=== PATIENT | male | born 2000 | race Caucasian/White ===

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

== ENCOUNTER 2023-09-03 10:37 | Emergency (ER) | payer BC, SELFPAY ==
[2023-09-03 10:50] VITALS: BP 112/58; PULSE 75; RESP 16; TEMP 37.1; O2SAT 98
--- NOTE | 2023-09-03 10:55 | ED.URI ---
HPI - URI/Sore Throat General Chief Complaint: Upper Respiratory Infection Stated Complaint: fever,headache Time Seen by Provider: 09/03/23 10:43 Source: patient Mode of arrival: ambulatory Limitations: no limitations History of Present Illness HPI Narrative: Betzaida is a 23-year-old male patient presenting to clinic today with complaints of fever, cough, and headache is been off and on x3 weeks. Highest temperature is been 103 which was last night. Reports when he cough he is bringing up some green phlegm. He reports that his mother is a nurse practitioner and she gave him antibiotics approximately 1 week ago and he is still having symptoms. Does not recall what antibiotics he was put on at that time. He denies a sore throat currently. Denies any chest pain or shortness of breath. Related Data Allergies Allergy/AdvReac Type Severity Reaction Status Date / Time NKDA Allergy Mild Unknown Uncoded 09/03/23 10:56 Review of Systems Review of Systems: Pertinent positives per HPI. Patient denies any rash, visual changes, dizziness, cough, runny nose, sore throat, shortness of breath, chest pain, palpitations, nausea, vomiting, diarrhea, constipation, abdominal pain, or any urinary issues. PMFSH Comments At the time of my signature, I reviewed and agree with the nursing past medical, surgical, social, and family history. There is no relevant family history pertinent to the patient complaint. Exam Narrative: General: Well-developed, well nourished, in no apparent distress Head: Normocephalic, atraumatic Eyes: Pupils equally round and reactive to light bilaterally, EOM intact, sclera and conjunctive clear, no discharge, lids normal Ears: TMs intact and clear, ear canals clear, no drainage, grossly hearing normal. Nose: Nares patent, clear nasal discharge, moderate inflammation to right nare, severe inflammation to the left nare, maxillary sinus tenderness. Mouth: Oropharynx red with bilateral tonsillar enlargement with white exudate to bilateral tonsils without lesions or masses, good dentition, MMM. Neck: Supple, trachea midline, no enlargement of anterior or posterior cervical nodes, no thyroid masses or goiter palpable. Cardio: Regular rate and rhythm, s1 and s2 normal, no murmur appreciated. Resp: Clear to auscultation bilaterally anteriorly and posteriorly, no rhonchi, rales, wheezing or rubs Course Course Emergency Course: Portions of this record may have been created with voice recognition software. Level of Care: Express Care Visit Vital Signs Vital signs: Vital Signs Temperature 37.1 C 09/03/23 10:50 Pulse Rate 75 09/03/23 10:50 Respiratory Rate 16 09/03/23 10:50 Blood Pressure 112/58 L 09/03/23 10:50 Pulse Oximetry 98 09/03/23 10:50 Oxygen Delivery Room Air 09/03/23 10:50 Temperature 37.1 C 09/03/23 10:50 Pulse Rate 75 09/03/23 10:50 Respiratory Rate 16 09/03/23 10:50 Blood Pressure 112/58 L 09/03/23 10:50 Pulse Oximetry 98 09/03/23 10:50 Oxygen Delivery Room Air 09/03/23 10:50 Vital signs reviewed MDM - URI/Sore Throat MDM Narrative Medical decision making narrative: At the time of visit patient is resting comfortably on the exam table. Strep screen was obtained and was negative in the clinic today. Stanislaus testing was also negative in the clinic today. I will treat patient with Augmentin for a sinus infection. Supportive measures were discussed with the patient he voiced understanding discharge instructions agrees to treatment plan. Differential Diagnosis Differential diagnosis: Likely upper respiratory infection, otitis media, sinusitis, viral infection, bronchitis, influenza, pharyngitis and other (COVID) Lab Data Labs: Strep Screen Presumptive Negative *(Reference Range: Negative)* Stanislaus Screen Negative (Reference Range: Negative)
--- NOTE | 2023-09-03 11:27 | PC.NURSE ---
fnp stated no strep cx to be sent. will treat regardless of results.
== END 2023-09-03 11:50 | disposition home or self-care (01) ==
PROVIDERS: Emergency Provider Nurse Practitioner Family
DX: J01.90 Acute sinusitis, unspecified (principal); B96.89 Other specified bacterial agents as the cause of diseases classified elsewhere
CPT/HCPCS: 36416; 86308; 87880; 99213; G0463

== ENCOUNTER 2024-04-10 12:11 | Outpatient (CLI) | payer BC, SELFPAY ==
--- NOTE | ~2024-04-10 | XR_ITS ---
Right Shoulder Technique: AP and scapular Y views were obtained. Clinical History: Pain Findings: No fracture or dislocation is seen. Osseous alignment is anatomic. The glenohumeral and acr omioclavicular joint spaces are preserved. Soft tissues are unremarkable. Impression: Unremarkable right shoulder radiographs. Reviewed, dictated and finalized at [facility]. Impression: Unremarkable right shoulder radiographs.
== END 2024-04-10 12:12 | disposition home or self-care (01) ==
LOC: ANHBWCIMG 12:12
PROVIDERS: PCP Nurse Practitioner Adult Health; Visit Provider Nurse Practitioner Adult Health
DX: M25.511 Pain in right shoulder (principal)
CPT/HCPCS: 73030

== ENCOUNTER 2024-09-21 19:36 | Emergency (ER) | payer BC, SELFPAY ==
--- NOTE | 2024-09-21 19:45 | ED.URI ---
HPI - URI/Sore Throat General Chief Complaint: Upper Respiratory Infection Stated Complaint: Fever/Bodyaches Time Seen by Provider: 09/21/24 19:45 Source: patient, RN notes reviewed and old records reviewed Mode of arrival: ambulatory Limitations: no limitations History of Present Illness HPI Narrative: Patient being presumptively treated for pneumonia with azithromycin, has taken 2 doses of same, never picked up his Medrol Dosepak, has not taken ibuprofen since this morning, presents with complaints of cough, fever, body aches. Says he is not feeling worse, but is not feeling any better. He is in no distress, including respiratory distress. Voices no other concerns or complaints at this time Related Data Allergies Allergy/AdvReac Type Severity Reaction Status Date / Time NKDA Allergy Mild Unknown Uncoded 09/21/24 19:38 Review of Systems Review of Systems: All systems reviewed & are unremarkable except as noted in HPI and below Constitutional: Constitutional: Reports as per HPI, Reports no additional constitutional complaints, Reports body ache(s), Reports chills and Reports lethargy ENT: Reports system reviewed and no additional complaints, except as documented Cardiovascular: Cardiovascular: Reports no additional cardiovascular complaints Respiratory: Respiratory: Reports no additional respiratory complaints and Reports cough Gastrointestinal: Gastrointestinal: Reports no additional gastrointestinal complaints [facility] Social History Social History Smoking status: Never smoker Comments At the time of my signature, I reviewed and agree with the nursing past medical, surgical, social, and family history. There is no relevant family history pertinent to the patient complaint. Exam Const: General: cooperative, no acute distress, alert, awake and uncomfortable Orientation/consciousness: oriented to person, oriented to place and oriented to time HENMT: Head: normal to inspection Ears: TM's normal bilaterally Mouth: Yes moist mucous membranes Resp: Effort & Inspection: normal respiratory effort and able to speak in complete sentences Auscultation: clear to auscultation bilaterally, no crackles, no rales, no rhonchi and no wheezes Cardio: Palpation: normal PMI Rate: regular rate Rhythm: regular rhythm Heart sounds: S1 normal heart sound present and S2 normal heart sound present Neuro: General: oriented to person, oriented to place and oriented to time Cranial nerves: Yes CN's II-XII intact bilaterally Psych: Appearance: grossly normal Thought process: Normal thought process present Insight: Good insight present (Psych) Judgement: Good judgement present (Psych) Course Course Level of Care: Express Care Visit Vital Signs Vital signs: Vital Signs Temperature 101.1 F H 09/21/24 19:55 Pulse Rate 96 09/21/24 19:55 Respiratory Rate 20 09/21/24 19:55 Blood Pressure 142/99 H 09/21/24 19:55 Pulse Oximetry 99 09/21/24 19:55 Oxygen Delivery Room Air 09/21/24 19:55 Temperature 101.1 F H 09/21/24 19:55 Pulse Rate 96 09/21/24 19:55 Respiratory Rate 20 09/21/24 19:55 Blood Pressure 142/99 H 09/21/24 19:55 Pulse Oximetry 99 09/21/24 19:55 Oxygen Delivery Room Air 09/21/24 19:55 Reviewed MDM - URI/Sore Throat MDM Narrative Medical decision making narrative: patient is no acute distress, already on appropriate antibiotic therapy. He is advised to take ibuprofen as needed for symptoms, start prednisone burst. Follow-up with primary care provider. Emergency department for new or worse symptoms. Discharge instructions reviewed with patient, as well as provided in writing per nursing staff. The instructions also include specific and strict return/GO TO THE ER as well as f/u information. All questions have been answered, and the patient deny any further questions with discharge and discharge plan. Some parts of this dictation were generated by voice recognition software and may contain typographical and/or grammatical inaccuracies. Differential Diagnosis Differential diagnosis: Likely upper respiratory infection, otitis media, sinusitis, viral infection and bronchitis Medical Records Attestation: I reviewed the patient's medical records. Discharge Plan Discharge Clinical Impression: Pneumonia Patient Disposition: Home, Self-Care Condition: Stable Instructions: Antibiotic Form, Community Acquired Pneumonia (ED) Additional Instructions: Take medications as prescribed. Follow with primary care provider. Emergency department for new or worse symptoms Patient Language: [place] Prescriptions: New prednisone 50 mg tablet 50 mg PO DAILY Qty: 5 0RF albuterol sulfate [Ventolin HFA] 90 mcg/actuation HFA aerosol inhaler 2 puff inhalation QID PRN (Reason: shortness of breath or wheezing) Qty: 8.5 0RF ibuprofen 600 mg tablet 600 mg PO TID PRN (Reason: fever or pain) Qty: 30 0RF No Action azithromycin 250 mg tablet See Rx Instructions PO .COMPLEX Qty: 6 0RF Rx Instructions: For 250 mg dose pack: take 500 mg today (day 1), then 250 mg for 4 days (days 2-5) PO Follow-up/Referrals: Nae Galvan APRN [Primary Care Provider] - 2 Weeks Stand Alone Forms: Work/School Release IP Time of Disposition: 19:57
[2024-09-21 19:55] VITALS: BP 142/99; PULSE 96; RESP 20; TEMP 38.4; O2SAT 99
== END 2024-09-21 20:00 | disposition home or self-care (01) ==
PROVIDERS: Emergency Provider Nurse Practitioner Family; PCP Nurse Practitioner Adult Health
DX: J18.9 Pneumonia, unspecified organism (principal)
CPT/HCPCS: 99213; G0463

== ENCOUNTER 2025-04-15 13:18 | Emergency (ER) | payer BC, SELFPAY ==
--- NOTE | 2025-04-15 13:25 | ED_ITS ---
HPI - Fever General Chief Complaint: Nausea/Vomiting/Diarrhea Stated Complaint: Vomiting Blood/Fever/Unable to Eat Source: patient Mode of arrival: ambulatory Limitations: no limitations History of Present Illness HPI Narrative: Patient is a 25 year old male who presents to the clinic for complaints of nausea, vomiting blood, diarrhea, fever up to 104F and LLQ pain x 4 days. Currently rating his abdominal pain a 7/10. He states that he is staying hydrated with Gatorade and water, but has not been able to eat for 4 days. He states that he has been vomiting dark red blood twice a day and having diarrhea ten times a day for four days. He has been taking Tylenol over the counter with minimal relief. Denies any shortness of breath, dizziness, or being lightheaded. Related Data Allergies Allergy/AdvReac Type Severity Reaction Status Date / Time No Known Allergies Allergy Verified 04/15/25 16:23 Review of Systems Review of Systems: CONSTITUTIONAL: Denies body aches, chills, or sweats. Reports fever. EYES: Denies visual changes, redness, or discharge. ENT: Denies rhinorrhea, congestion, sore throat, or otalgia. CARDIOVASCULAR: Denies chest pain, palpitations, or edema. RESPIRATORY: Denies cough or dyspnea. GASTROINTESTINAL: Reports abdominal pain, nausea, vomiting, and diarrhea. Denies CVA Tenderness. GENITOURINARY: Denies dysuria or hematuria. SKIN: Denies rash, itching, or wounds. MUSCULOSKELETAL: Denies back pain, joint pain, or myalgia. NEUROLOGIC: Denies headache, numbness, tingling, or weakness. PSYCH: Denies depression or anxiety. All systems reviewed & are unremarkable except as noted in HPI and below PMFSH Social History Social History Smoking status: Never smoker Comments At time of signature, I have reviewed and agree with nursing past medical, surgical, social and family history unless otherwise noted. Please see nursing chart for further information. There is no relevant family history pertinent to the presenting complaint. Exam Narrative: GENERAL: Mildly ill-appearing. HEAD: Normocephalic, atraumatic. ENT: Mucous membranes moist. NECK: Supple. No lymphadenopathy. CHEST: Speaks in full sentences. No respiratory distress. HEART: Regular rate and rhythm. ABDOMEN: Soft, flat, nondistended. No guarding, rebound tenderness, or rigid. No pulsatile masses. Bowel sounds x4. No periumbilical tenderness. No Supra pubic tenderness or distension. Good femoral pulses bilaterally. No hernia noted. No scars or surface trauma. No abdominal tenderness with palpation. SKIN: Warm, dry, no rash. NEURO: Alert and oriented x3. PSYCH: Normal mood and affect. Course Course Level of Care: Express Care Visit Vital Signs Vital signs: Vital Signs Temperature 98.7 F 04/15/25 13:27 Pulse Rate 77 04/15/25 13:27 Respiratory Rate 20 04/15/25 13:27 Blood Pressure 107/62 04/15/25 13:27 Pulse Oximetry 99 04/15/25 13:27 Oxygen Delivery Room Air 04/15/25 13:27 Temperature 98.7 F 04/15/25 13:27 Pulse Rate 77 04/15/25 13:27 Respiratory Rate 20 04/15/25 13:27 Blood Pressure 107/62 04/15/25 13:27 Pulse Oximetry 99 04/15/25 13:27 Oxygen Delivery Room Air 04/15/25 13:27 reviewed. Transfer Transfered to: [facility] Transfer rationale: LLQ pain, vomiting blood, diarrhea, fever of 104F. Accepting physician: Dr. Nichols. Transfer comments: Pt is agreeable to transfer. Requests transfer to [facility] via private vehicle. Risks of transportation reviewed with pt including injury, worsening of condition and . Pt will be driving: Report called to [facility], spoke with Dr. Nichols, accepting physician. Pt is in stable condition at time of transfer. Advised to remain NPO and go directly to the hospital. MDM - Fever MDM Narrative Medical decision making narrative: Discussed physical exam findings. Based on patients symptoms of fever, hematemesis, and abdominal pain discussed with patient the need for him to transfer to ED. Pt agreeable to plan. Differential Diagnosis Differential diagnosis: Likely fever of unknown origin, gastroenteritis and other ( diverticulitis, hernia, appendicitis, bowel obstruction, IBS, colon cancer, AAA, kidney stone, uti, pyelonephritis,) Critical Care Time Critical Care Time Critical Care Time: No Discharge Plan Discharge Clinical Impression: Abdominal pain, acute, left lower quadrant Bloody emesis Qualifiers: Nausea presence: with nausea Qualified Code(s): K92.0 - Hematemesis Diarrhea Qualifiers: Diarrhea type: unspecified type Qualified Code(s): R19.7 - Diarrhea, unspecified Fever Qualifiers: Fever type: unspecified Qualified Code(s): R50.9 - Fever, unspecified Patient Disposition: Acute Care Hospital Condition: Stable Patient Language: Burkinan Prescriptions: No Action ondansetron 4 mg tablet,disintegrating 4 mg PO Q8H PRN (Reason: nausea and vomiting) Qty: 14 0RF Follow-up/Referrals: Nae Galvan APRN [Primary Care Provider] -
[2025-04-15 13:27] VITALS: BP 107/62; PULSE 77; RESP 20; TEMP 37.1; O2SAT 99
== END 2025-04-15 13:57 | disposition short-term general hospital (02) ==
LOC: EXPCOLL 13:22
PROVIDERS: PCP Nurse Practitioner Adult Health
DX: R10.32 Left lower quadrant pain (principal); K92.0 Hematemesis; R19.7 Diarrhea, unspecified; R50.9 Fever, unspecified
CPT/HCPCS: 99212; G0463

== ENCOUNTER 2025-04-15 14:13 | Emergency (ER) | payer BC, SELFPAY ==
[2025-04-15 14:16] VITALS: BP 109/71; PULSE 72; RESP 18; TEMP 36.6; O2SAT 100
[2025-04-15 14:38] VITALS: BP 120/74; PULSE 70; RESP 18; O2SAT 97
[2025-04-15 14:54] LABS: Basophils Percent Auto 0.5 % (0.2-1.2); Eosinophils Percent Auto 0.2 % (0-4.4); Hematocrit 43.3 % (42.0-52.0); Hemoglobin 14.7 g/dL (14.0-18.0); Immature Granulocyte Absolute 0.02 K/mm3 (0.00-0.031); Immature Granulocyte Percent A 0.3 % (0-0.5); Lymphocytes Percent Auto 20.7 % (18.3-44.2); Mean Corpuscular HGB Conc 33.9 g/dl (32-36); Mean Corpuscular Hemoglobin 28.8 pg (26-34); Mean Corpuscular Volume 84.7 fl (80-100); Mean Platelet Volume 9.7 fl (7.4-10.4); Monocytes Percent Auto 16.3 % (2.6-8.5); Neutrophils Absolute Auto 3.9 K/mm3 (1.3-6.7); Platelet Count Result 243 k/mm3 (150-375); Red Blood Count 5.11 M/mm3 (4.6-6.20); Red Cell Distribution Width 12.6 % (11.5-14.5); White Blood Count 6.3 K/mm3 (4.5-10.0)
[2025-04-15 15:09] LABS: Alanine Aminotransferase 34 U/L (6-50); Albumin Level 4.3 g/dL (3.5-5.1); Alkaline Phosphatase 60 U/L (38-126); Anion Gap 10 mmol/L (4-12); Aspartate Amino Transferase 37 U/L (17-59); Bilirubin,Total 0.5 mg/dL (0.2-1.3); Blood Urea Nitrogen 8 mg/dL (9-20); Calcium 9.2 mg/dL (8.4-10.2); Carbon Dioxide 28 mmol/L (22-30); Chloride 101 mmol/L (98-107); Estimated CRCL calculation 113 ml/min; Estimated Glomerular Filt Rate > 60; Glucose 91 mg/dL (65-110); Lipase 56 U/L (23-300); Potassium 3.7 mmol/L (3.4-5.0); Sodium 139 mmol/L (137-145); Total Protein 7.6 g/dL (6.3-8.2)
[2025-04-15 15:16] LABS: Add Urine Microscopic? YES; Appearance Urine Clear (Clear); Bacteria Urine None Seen /hpf; Bilirubin Urine Negative (Negative); Blood Urine Negative (Negative); Color Urine Dark Yellow (Yellow); Glucose Urine UA Negative (Negative); Ketones Urine Trace mg/dL (Negative); Leukocyte Esterase Ur Negative LEU/UL (Negative); Need Manual Microscopic Reviewed; Nitrate Urine Negative (Negative); Non Pathogenic Casts 0-2; Protein Urine 1+ mg/dL (Negative); RBC Urine 0-2 /hpf (0-2); Specific Grav Ur 1.023 (1.001-1.035); Squamous Epithelial Cell Urine None Seen /hpf (Few); WBC Urine 0-5 /hpf (0-3)
--- OUTSIDE RECORDS SUMMARY | 2025-04-15 15:19 | XMS_ITS | Encounter Summary ---
Author Organization [facility] Address [address] [place] [address] Care Team Providers Care Claim Taker Name Role Phone Randee Ch MD Primary Care Provider [phone] Dusty Dave DO Primary Care Provider Dianne Salamanca Unavailable [phone] Dusty Dave DO Unavailable [phone] Encounter Details Date Type Department Care Team (Late st Contact Info) Description 09/20/[address] [address] Mariajose Fernández MD [address] [place] [id number] Social History Tobacco Use Types Packs/Day Years Used Date Smoking Tobacco: Never Sex and Gender Information Value Date Recorded Sex Assigned at Not on file Legal Sex Male 6:43 AM [employer] Gender Identity Not on file Sexual Orientation Not on file documented as of this encounter Functional Status * Is person deaf or have serious hearing difficulty? Answer Date of Assessment Author No 09/02/2014 10:12 PM Jaquan Boggs RN * Is person blind or have serious difficulty seeing? Answer Date of Assessment Author No 09/02/2014 10:12 PM Jaquan Boggs RN * Does person have serious difficulty walking/climbing stairs? Answer Date of Assessment Author No 09/02/2014 10:12 PM Jaquan Boggs RN * Does person have difficulty dressing/bathing? Answer Date of Assessment Author No 09/02/2014 10:12 PM Jaquan Boggs RN * Does person have difficulty doing errands alone? Answer Date of Assessment Author No 09/02/2014 10:12 PM Jaquan Boggs RN documented as of this encounter Mental Status * Does person have difficulty concentrating/remembering/making decisions? Answer Entry Date Author No 09/02/2014 10:12 PM Jaquan Boggs RN documented in this encounter Plan of Treatment Not on file documented as of this encounter Goals Goal Patient Goal Type Associated Problems Recent Progress Patient-Stated? Author Use safety retraint in car Lifestyle On track( 019 3:50 PM CDT) Amelia Flores RN documented as of this encounter Visit Diagnoses Not on filedocumented in this encounter Additional Health Concerns Infection Onset Date Last Indicated Resolved Time COVID-19 Under Investigation 06/12/2020 06/12/2020 06/14/2020 1:07 PM CDT COVID-19 Under Investigation 08/14/2021 08/14/2021 08/24/2021 4:33 AM CDT documented as of this encounter Care Teams Claim Taker Relationship Specialty Start Date End Date Randee Ch MD PCP - General Pediatrics 12/24/13 02/14/18 Dusty Dave DO PCP - General Pediatrics 02/15/18 Dusty Dave DO [address] [id number] PCP - Attributed-[employer] 07/31/22 11/17/22 Dianne Salamanca [address] [address] 06/18/19 documented as of this encounter
--- OUTSIDE RECORDS SUMMARY | 2025-04-15 15:19 | XMS_ITS | Clinical Summary ---
Author Organization [facility] Address [address] [facility] [place] [address] Care Team Providers Care Cable Cutter And Swager Name Role Phone Dusty Dave DO Primary Care Provider Dianne Salamanca Unavailable [phone] Source Comments [facility],non-owned Affiliates and Associated Physician Practices is amultiple site organization consisting of ambulatory clinics and hospital sitesin [place], [place], [place] and [place]. This disclosure is being madepursuant to the Care Everywhere program and may not contain all information available regarding this patient. Last updated 18.[facility] Allergies Active Allergy Reactions Criticality Noted Date Comments Lamotrigine 09/02/2014 Oxcarbazepine Rash Medium 11/15/2016 Medications * Be aware that medications may not be up to date on this document. Alwaysverify current medications with the patient. divalproex DR (DEPAKOTE) 250 MG tablet Take 250 mg by mouth once daily Active Active Problems Problem Noted Date Diagnosed Date Closed nondisplaced fracture of neck of second metacarpal bone of right hand 05/07/2019 Closed fracture of left distal radius 02/09/2019 Closed avulsion fracture of anterior inferior iliac spine of pelvis 02/17/2018 Depression 03/26/2016 Decreased linear growth velocity 03/26/2016 Overview (05/23/2017): Linear growth measurements (age 10-12 yr) ~ 5th percentile isopleth; now (age 12-1/2 to present) height measurements below 5th percentile isopleth. H/o abdominal pains, s/p colonoscopy (unrevealing). March 26, 2016 - bone age 12-1/2 yr (report) at chronological age 16 yr - [facility] in [place], [place]. Assessment & Plan (05/23/2017 6:03 PM CDT): Short stature, bone age delay with declining linear growth velocity; etiology unclear. 1. Review bone age radiograph (March 26, 2017) 2. Obtain serum complete blood count, TSH, total T4 and IGF-1 levels following today's office appointment. 3. Expectant observation. 4. Return appointment in six months. Stomatitis 09/03/2014 Assessment & Plan (09/03/2014 3:34 PM FEDERAL MEDIATOR): Assessment: 14 yo male with history of depression, mood disorder who presents with fever, oral ulcers, spots in vision. Differential includes drug reaction or viral infection.Oral ulcers and changes in vision are known side effects of lamotrigine; patient had taken one dose of lamotrigine 2 days before before onset of ulcers and fever. Viral infection from primary herpes gingivostomatitis could cause the numerous oral ulcers and fever. Coxsackie virus also causes high fever and oral ulcers, although this patient did not present with ulcers anywhere else. Plan: * encourage PO intake; adjust IV fluids to maintenance IV * tylenol, motrin PRN * topical mouth wash for pain * anticipate discharge tomorrow if patient is able to tolerate PO intake and maintains blood pressure Assessment & Plan (09/03/2014 12:54 AM FEDERAL MEDIATOR): Assessment: 14 year old male with a PMH of depression, mood disorder, and impulsivity who presents after the development of lesions in the oral cavity along with lethargy and vision disturbances today. Was started on Lamictal 4 days prior to presentation but has not taken it in 3 days. Also on Metadate and Tenex. Has been having URI symptoms as well as being febrile. Lesions have not spread. No rash anywhere on body. No history of allergic reactions. Visual disturbances are no longer present upon arrival. Given his URI symptoms and the development of these oral lesions, it could very well be that he has developed an oral stomatitis with an associated viral URI. A more concerning possibility is that of a Lamictal hypersensitivity which can also be associated with new mucous membrane lesions. The development of Toan-Francisco's syndrome is a rare but possible sequelae of such hypersensitivity reactions. Plan: - Begin mIVF of D5 1/2NS at 80ml/hr given history of today's poor PO intake and decreased UOP. - May continue regular diet - Continue to observe for any development of a rash or worsening mucous membrane lesions/ulcers. - Fever control with Tylenol and Ibuprofen PRN Left knee pain 07/12/2014 Anxiety 06/24/2012 Hip injury, right, subsequent encounter Resolved Problems Problem Noted Date Diagnosed Date Resolved Date Constipation 09/02/2016 09/30/2016 Immunizations Immunization Administration Dates Next Due INFLUENZA VACCINE, TRIV. (AF LURIA, FLUZONE TRIVALENT; 6MO+) (IIV3) 09/21/2010,08/17/2010 DTaP VACCINE IM (6wk-6yrs) 04/05/2006,,2002,07/09,2002 HEP A PEDS 2 DOSE 03/17/2007,04/05/2006 HEP B VACCINE, PED/ADOL 2002,2002, HIB BOOSTER 03/18/2008, 3,2002,07/09,2002 Human Papilloma Virus Adonis valent Vaccine 04/30/2014,07/27/2013,04/12/2013 INFLUENZA VACCINE, QUADR. (F LUZONE; FLULAVAL; FLUARIX; AFLURIA QUADRIVALENT; 6MO+), 0.5 ML (IIV4) 08/07/2018 Influenza Nasal 11/17/2012 JIMENA VACCINE QUAD LAIV4 PF NASAL 07/27/2013 MENINGOCOCCAL ACWY (MCV4P) VAC IM 06/16/2018, MMR 04/05/2006,03/12/2003 PNEUMOCOCCAL CONJ, PEDS 03/12/2003,09/10,2002,05/07 PNEUMOCOCCAL PPSV23 03/18/2003 POLIO IPV 04/05/2006, 3,2002,05/07 PPD 03/17/2007,03/12/2003 TDAP (7yrs+) 06/24/2012 VARICELLA 03/17/2007,06/11/2003 Family History Medical History Relation Name Comments Allergies Brother Crohn's Disease Maternal Grandfather Other Maternal Grandmother short s tature; height ~ 5 ft 2 in Thyroid Disease Maternal Grandmother Allergies Mother Other Mother short stature; height ~ 5 ft; early menarche ~ 10 yr Relation Name Status Comments Brother Maternal Grandfather Maternal Grandmother Mother Social History Tobacco Use Types Packs/Day Years Used Date Smoking Tobacco: Never Smokeless Tobacco: Never Sex and Gender Information Value Date Recorded Sex Assigned at Not on file 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 Gender Identity Not on file Sexual Orientation Not on file Last Filed Vital Signs Vital Sign Reading Time Taken Comments Blood Pressure 105/54 06/18/2019 3:52 PM CDT Pulse 67 06/12/2020 1:58 PM CDT Temperature 37.1 C (98.7 F) 08/14/2021 3:47 PM CDT Ibuprofen 0900 Respiratory Rate 20 02/17/2018 2:21 PM CDT Oxygen Saturation 97% 06/12/2020 1:5 8 PM CDT Inhaled Oxygen Concentration - - Weight 64.1 kg (141 lb 6.4 oz) 08/14/2021 3:47 PM CDT Height 168.3 cm (5' 6.25) 06/18/2019 3 :52 PM CDT Body Mass Index - - Plan of Treatment Health Maintenance Due Date Last Done Comments HIV SCREENING 2017 MENINGOCOCCAL (Group B) VACC INE SHARED DECISION-MAKING (1 of 2 - Standard) 2018 HEPATITIS C SCREENING 03/01/2020 DTAP/TDAP/TD VACCINES (7 - T d or Tdap) 06/24/2022 06/24/2012, 04/05/2006, 09/17/2003, Additional history exists COVID-19 VACCINE (1 - 2023-2 5 season) 2024 DEPRESSION SCREENING 10/31/2024 INFLUENZA VACCINE (Season Ended) 2025 08/07/2018, 07/27/2013, 11/17/2012, Additional history exists ZOSTER VACCINE (1 of 2) 2052 HEPATITIS B VACCINE Completed 2002, 2002, 2002 PNEUMOCOCCAL VACCINE Completed 03/18/2003, 03/12/2003, 2002, Additional history exists HIB VACCINE Completed 03/18/2008, 08/31, 2002, Additional history exists HPV VACCINE Completed 04/30/2014, 07/02, 04/12/2013 MENINGOCOCCAL GROUPS A/C/Y/W VACCINE Completed 06/16/2018, 04/12/2013 Goals Goal Patient Goal Type Associated Problems Recent Progress Patient-Stated? Author Use safety retraint in car Lifestyle On track( 019 3:50 PM CDT) Amelia Flores, CHITRA Insurance [facility] AETNA AETNA * Guarantor: MICHELLE GALVAN Account Type Relation to Patient Date of Phone Billing Address Personal/Family [address] [place] [address] Care Teams Cable Cutter And Swager Relationship Specialty Start Date End Date Dusty Dave DO PCP - General Pediatrics 02/15/18 Dianne Salamanca [address] [place] [address] 06/18/19
--- OUTSIDE RECORDS SUMMARY | 2025-04-15 15:19 | XMS_ITS | Encounter Summary ---
Author Organization [facility] Health Address [address] [place] [address] Care Team Providers Care Sawyer Cork Slabs Name Role Phone Oneida Huffman MD Unavailable Oneida Huffman MD Primary Care Provider [phone] Randee Ch MD Primary Care Provider [phone] Dusty Dave DO Primary Care Provider Dianne Salamanca Unavailable [phone] Dusty Dave DO Unavailable [phone] Encounter Details Date Type Department Care Team (Late st Contact Info) Description 03/17/2012 [facility] Outpatient Visit CG DEFAULT [address] [place] [address] Unknown, Provider Social History Tobacco Use Types Packs/Day Years Used Date Smoking Tobacco: Never Assessed Sex and Gender Information Value Date Recorded Sex Assigned at Not on file 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 Gender Identity Not on file Sexual Orientation Not on file documented as of this encounter Plan of Treatment Not on file documented as of this encounter Visit Diagnoses Not on filedocumented in this encounter Additional Health Concerns Infection Onset Date Last Indicated Resolved Time COVID-19 Under Investigation 06/12/2020 06/12/2020 06/14/2020 1:07 PM CDT COVID-19 Under Investigation 08/14/2021 08/14/2021 08/24/2021 4:33 AM CDT documented as of this encounter Care Teams Sawyer Cork Slabs Relationship Specialty Start Date End Date Oneida Huffman MD PCP - Pediatrics 09/11/09 03/13/14 Oneida Huffman MD [address] [place] [address] PCP - General 11/14/09 12/23/13 Randee Ch MD [address] [place] [address] PCP - General Pediatrics 12/24/13 02/14/18 Dusty Dave DO [address] [place] [address] PCP - General Pediatrics 02/15/18 Dusty Dave DO [address] [place] [phone] PCP - Attributed-[employer] Commercial STL 07/31/22 11/17/22 Dianne Salamanca [address] [address] 06/18/19 documented as of this encounter
--- NOTE | 2025-04-15 16:10 | ED_ITS ---
HPI - General Adult General Chief complaint: Abdominal Pain Stated complaint: abdominal pain Time Seen by Provider: 04/15/25 15:02 History of Present Illness HPI narrative: 25-year-old male present to the emergency department for evaluation for nausea vomiting diarrhea. Patient began having symptoms on patient did have 2 episodes of bloody emesis on Tuesday that have since resolved. Patient denies any current abdominal pain. Patient denies any significant past medical history. Patient was well-appearing at time of evaluation no distress. Related Data Allergies Allergy/AdvReac Type Severity Reaction Status Date / Time No Known Allergies Allergy Verified 04/15/25 16:23 Review of Systems 2 Review of Systems: All systems reviewed & are unremarkable except as noted in HPI and below PMFSH Social History Social History Smoking status: Never smoker Exam 2 Narrative: APPEARANCE: Well appearing, no pain, no distress, well-nourished. HEAD: normocephalic, atraumatic. EYES: PERRLA/EOMI, conjunctivae clear. NOSE: Normal no drainage EARS:TMS clear with good light reflex. THROAT: Pharynx clear, no exudate. NECK: Supple. No adenopathy, no masses. RESPIRATORY: Airway patent, respirations nonlabored. Clear to auscultation bilaterally, no rales, rhonchi, wheezing. CARDIOVASCULAR: Regular rate and rhythm without murmurs rubs or gallops. ABDOMINAL: Soft, nontender, nondistended, normal bowel sounds MUSCULOSKELETAL: Moves all extremities. Strength/ROM intact, No edema, No calf tenderness. NEURO: Alert. Cranial nerves II through XII intact. Good gait. Good coordination SKIN: Warm, dry. Normal Color Course Vital Signs Vital signs: Vital Signs Temperature 97.9 F 04/15/25 14:16 Pulse Rate 72 04/15/25 14:16 Respiratory Rate 18 04/15/25 14:16 Blood Pressure 109/71 04/15/25 14:16 Pulse Oximetry 100 04/15/25 14:16 Oxygen Delivery Room Air 04/15/25 14:16 Temperature 97.9 F 04/15/25 14:16 Pulse Rate 69 04/15/25 18:03 Respiratory Rate 18 04/15/25 18:03 Blood Pressure 101/51 L 04/15/25 18:03 Pulse Oximetry 99 04/15/25 18:03 Oxygen Delivery Room Air 04/15/25 14:38 Medical Decision Making [facility] Narrative Medical decision making narrative: 25-year-old male present to the emergency department for evaluation for nausea vomiting diarrhea. Patient denies any current abdominal pain. For review had no further nausea in the emergency department. Patient is afebrile with no leukocytosis hemoglobin 14.7. Patient has no acute abnormalities on his CMP with normal kidney function. No elevation of AST ALT lipase. Urine was negative for infection. Patient was treated with a L of IV fluid. Patient had no further symptoms the emergency department. Patient was discharged home with instructions for clear liquid diet and Zofran for nausea control. Differential Diagnosis Differential Diagnosis: Colitis, diverticulitis, appendicitis Vital Signs Vital Signs: Vital Signs Temperature 97.9 F 04/15/25 14:16 Pulse Rate 72 04/15/25 14:16 Respiratory Rate 18 04/15/25 14:16 Blood Pressure 109/71 04/15/25 14:16 Pulse Oximetry 100 04/15/25 14:16 Oxygen Delivery Room Air 04/15/25 14:16 Temperature 97.9 F 04/15/25 14:16 Pulse Rate 69 04/15/25 18:03 Respiratory Rate 18 04/15/25 18:03 Blood Pressure 101/51 L 04/15/25 18:03 Pulse Oximetry 99 04/15/25 18:03 Oxygen Delivery Room Air 04/15/25 14:38 Lab Data Lab results reviewed: Yes I reviewed the patient's lab results. 04/15/25 14:46 04/15/25 14:46 Labs: Lab Results 04/15/25 04/15/25 Range/Units 14:41 14:46 WBC 6.3 (4.5-10.0) K/mm3 RBC 5.11 (4.6-6.20) M/mm3 Hgb 14.7 (14.0-18.0) g/dL Hct 43.3 (42.0-52.0) % MCV 84.7 (80-100) fl MCH 28.8 (26-34) pg MCHC 33.9 (32-36) g/dl RDW 12.6 (11.5-14.5) % Plt Count 243 (150-375) k/mm3 MPV 9.7 (7.4-10.4) fl Immature Gran % (Auto) 0.3 (0-0.5) % Neut % (Auto) 62.0 (45.5-73.1) % Lymph % (Auto) 20.7 (18.3-44.2) % [place] % (Auto) 16.3 H (2.6-8.5) % Eos % (Auto) 0.2 (0-4.4) % Baso % (Auto) 0.5 (0.2-1.2) % Lymph # (Auto) 1.30 (0.9-3.2) K/mm3 [place] # (Auto) 1.0 H (0.1-0.6) K/mm3 Eos # (Auto) 0.0 (0-0.3) K/mm3 Baso # (Auto) 0.0 (0.0-0.1) K/mm3 Abs Immat Gran (auto) 0.02 (0.00-0.031) K/mm3 Absolute Neuts (auto) 3.9 (1.3-6.7) K/mm3 Absolute Nucleated RBC 0.000 (0.0-0.012) K/mm3 Nucleated RBC % 0.0 (0.0-0.2) % Sodium 139 (137-145) mmol/L Potassium 3.7 (3.4-5.0) mmol/L Chloride 101 (98-107) mmol/L Carbon Dioxide 28 (22-30) mmol/L Anion Gap 10 (4-12) mmol/L BUN 8 L (9-20) mg/dL Creatinine 0.89 (0.7-1.3) mg/dL Estim Creat Clear Calc 113 ml/min Estimated GFR > 60 (59 - ) Glucose 91 (65-110) mg/dL Calcium 9.2 (8.4-10.2) mg/dL Total Bilirubin 0.5 (0.2-1.3) mg/dL AST 37 (17-59) U/L ALT 34 (6-50) U/L Alkaline Phosphatase 60 (38-126) U/L Total Protein 7.6 (6.3-8.2) g/dL Albumin 4.3 (3.5-5.1) g/dL Lipase 56 (23-300) U/L Urine Color Dark yellow (Yellow) Urine Appearance Clear (Clear) Urine pH 6.0 (5.0-9.0) Ur Specific [place] 1.023 (1.001-1.035) Urine Protein 1+ H (Negative) mg/dL Urine Glucose (UA) Negative (Negative) mg/dL Urine Ketones Trace H (Negative) mg/dL Ur Blood (Man) Negative (Negative) Urine Nitrate Negative (Negative) Urine Bilirubin Negative (Negative) Urine Urobilinogen 1.0 (<2.0) mg/dL Add Ur Microanalysis Reviewed Leukocyte Esterase Rfl Negative (Negative) GRACIELA/UL Urine RBC 0-2 (0-2) /hpf Urine WBC 0-5 (0-3) /hpf Ur Squamous Epith Cells None seen (Few) /hpf Urine Bacteria None seen /hpf Urine Casts 0-2 Discharge Plan Discharge Clinical Impression: Nausea vomiting and diarrhea Patient Disposition: Home Condition: Stable Instructions: Antibiotic Form, Clear Liquid Diet (ED), Acute Nausea and Vomiting (ED), Acute Diarrhea (ED) Additional Instructions: Zofran as needed for nausea control. Clear liquid diet for the next 1-3 days. Advance to a bland diet as tolerated. If you have any worsening symptoms then please call or return to the emergency department. Patient Language: Georgian Prescriptions: New ondansetron 4 mg tablet,disintegrating 4 mg PO Q8H PRN (Reason: nausea and vomiting) Qty: 14 0RF Follow-up/Referrals: Nae Galvan APRN [Primary Care Provider] - Stand Alone Forms: Work/School Release IP
[2025-04-15 16:16] VITALS: BP 108/67; PULSE 67; RESP 18; O2SAT 99
[2025-04-15] MEDS: LACTATED RINGERS 1,000 ML 999 ML IV CONT (16:16)
--- OUTSIDE RECORDS SUMMARY | 2025-04-15 16:26 | XMS_ITS | Encounter Summary ---
Author Organization [facility] Health Address [address] [place] [address] Care Team Providers Care Crystal Grinder Name Role Phone Oneida Huffman MD Unavailable Oneida Huffman MD Primary Care Provider [phone] Randee Ch MD Primary Care Provider [phone] Dusty Dave DO Primary Care Provider Dianne Salamanca Unavailable [phone] Dusty Dave DO Unavailable [phone] Encounter Details Date Type Department Care Team (Late st Contact Info) Description 03/17/2012 [facility] Outpatient Visit CG DEFAULT [address] [place] [address] Unknown, Provider Social History Tobacco Use Types Packs/Day Years Used Date Smoking Tobacco: Never Assessed Sex and Gender Information Value Date Recorded Sex Assigned at Not on file 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 Gender Identity Not on file Sexual Orientation [...] documented as of this encounter Care Teams Crystal Grinder Relationship Specialty Start Date End Date Oneida Huffman MD PCP - Pediatrics 09/11/09 03/13/14 Oneida Huffman MD [address] [place] [address] PCP - General 11/14/09 12/23/13 Randee Ch MD [address] [place] [address] PCP - General Pediatrics 12/24/13 02/14/18 Dusty Dave DO [address] [place] [address] PCP - General Pediatrics 02/15/18 Dusty Dave DO [address] [place] [phone] PCP - Attributed-[employer] Commercial STL 07/31/22 11/17/22 Dianne Salamanca [address] [address] 06/18/19 documented as of this encounter
--- OUTSIDE RECORDS SUMMARY | 2025-04-15 16:26 | XMS_ITS | Clinical Summary ---
Author Organization [facility] Address [address] [place] [address] Care Team Providers Care Flower Picker Name Role Phone Dusty Dave DO Primary Care Provider Dianne Salamanca Unavailable [phone] Source Comments [facility],non-owned Affiliates and Associated Physician Practices is amultiple site organization consisting of ambulatory clinics and hospital sitesin [place], [place], [place] and [place]. This disclosure is being madepursuant to the Care Everywhere program and may not contain all information available regarding this patient. Last updated 18.[facility] Allergies Active Allergy Reactions Criticality Noted Date [...] (report) at chronological age 16 yr - [facility] in [place], [place]. Assessment & Plan (05/23/2017 6:03 PM CDT): Short stature, bone age delay with declining linear growth velocity; etiology unclear. 1. Review bone age radiograph (March 26, 2017) 2. Obtain serum complete blood count, TSH, total T4 and IGF-1 levels following today's office appointment. 3. Expectant observation. 4. Return appointment in six months. 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
--- OUTSIDE RECORDS SUMMARY | 2025-04-15 16:26 | XMS_ITS | Encounter Summary ---
Author Organization [facility] Address [address] [place] [address] Care Team Providers Care Concrete Hopper Operator Name Role Phone Randee Ch MD Primary Care Provider [phone] Dusty Dave DO Primary Care Provider Dianne Salamanca Unavailable Dusty Dave DO Unavailable [phone] Encounter Details Date Type Department Care Team (Late st Contact Info) Description 09/20/[address] [address] Mariajose Fernández MD [address] [place] [address] Social History Tobacco Use Types Packs/Day Years Used Date Smoking Tobacco: Never Sex and Gender Information Value Date Recorded Sex Assigned at Not on file 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
[2025-04-15 18:03] VITALS: BP 101/51; PULSE 69; RESP 18; O2SAT 99
== END 2025-04-15 18:04 | disposition home or self-care (01) ==
PROVIDERS: Student in an Organized Health Care Education/Training Program; Emergency Provider Emergency Medicine; PCP Nurse Practitioner Adult Health
DX: R11.2 Nausea with vomiting, unspecified (principal); R19.7 Diarrhea, unspecified
CPT/HCPCS: 36415; 80053; 81001; 83690; 85025; 96360; 96361; 99283; J7120